=== PATIENT | male | born 1955 | race African-American/Black ===

== ENCOUNTER 2024-01-30 07:30 | Observation (INO) ==
[2024-01-30] MEDS ORDERED: XYLOCAINE 2 % (PLAIN) ONE (09:06)
[2024-01-30] MEDS ORDERED: ULTANE GAS IN ONE (09:06)
[2024-01-30] MEDS: NOZIN NASAL SANITIZER TP ONE (09:43)
[2024-01-30] MEDS: NS 1,000 ML IV 1,000 ML ONE ×2 (09:49→14:53)
[2024-01-30 10:43] VITALS: BMI 32.3
[2024-01-30] MEDS: SUPRANE ONE (13:29)
[2024-01-30] MEDS: NS 100 ML IV 100 ML ONE (13:42)
[2024-01-30] MEDS: ANCEF VIAL 1 GRAM ONE (13:42)
[2024-01-30] MEDS: DIPRIVAN VIAL 20 ML ONE (13:50)
[2024-01-30] MEDS: FENTANYL VIAL INJ 100 mcg ONE ×2 (13:50→15:13)
[2024-01-30] MEDS: ZEMURON 100 MG VIAL ONE (13:50)
[2024-01-30] MEDS: VERSED ONE (13:50)
[2024-01-30] MEDS: BRIDION ONE (13:50)
[2024-01-30] MEDS: PEPCID 20 MG VIAL ONE (13:50)
[2024-01-30] MEDS: ZOFRAN INJ 4 MG VIAL ONE (13:50)
[2024-01-30] MEDS: REGLAN INJ 10 MG VIAL ONE (13:50)
[2024-01-30] MEDS: TORADOL 30 MG VIAL ONE (13:50)
[2024-01-30] MEDS: MARCAINE 0.25% INJ ONE (14:12)
[2024-01-30] MEDS: OFIRMEV IV 1000 MG VIAL 1,000 MG/100 ML VIAL IV ONE (15:47)
[2024-01-30] MEDS ORDERED: ZOFRAN INJ 4 MG VIAL IVP PRN ×2 (16:21→16:36)
[2024-01-30] MEDS ORDERED: TYLENOL 325 MG TAB PO PRN (16:21)
[2024-01-30] MEDS ORDERED: DILAUDID INJ IVP PRN (16:21)
[2024-01-30] MEDS: DILAUDID INJ IVP PRN (16:26)
[2024-01-30] MEDS ORDERED: REGLAN INJ 10 MG VIAL IVP PRN (16:36)
[2024-01-30] MEDS ORDERED: BARHEMSYS INJ IVP PRN (16:36)
[2024-01-30] MEDS ORDERED: BENADRYL INJ 50 MG VIAL IVP PRN (16:36)
[2024-01-30] MEDS: NORMODYNE INJ 20 MG VIAL ONE (16:37)
[2024-01-30] MEDS: NS 1,000 ML IV 1,000 ML IV SCH (18:05)
[2024-01-30] MEDS: PERCOCET TAB 5/325 MG PO PRN (19:26)
[2024-01-30] MEDS: COLACE CAP 100 MG PO SCH (23:14)
[2024-01-31 05:18] LABS: CALCIUM 7.8 mg/dL (8.5-10.1); CARBON DIOXIDE 32.3 mmol/L (21-32); CREATININE 1.63 mg/dL (0.70-1.30); POTASSIUM 3.9 mmol/L (3.5-5.1)
[2024-01-31 07:30] VITALS: BP 141/64; PULSE 91; TEMP 97.8; O2SAT 99
[2024-01-31] MEDS: LOVENOX INJ 40 MG SYR SC SCH (08:04)
[2024-01-31 10:13] VITALS: RESP 20
--- NOTE | 2024-01-31 10:39 | NOTE.SOAP ---
Soap Note Note for Day of Date of Exam: 01/31/24 Subjective Data Subjective Data: Patient in bed. Denies any nausea, vomiting, fevers, chills, shortness of breath or chest pain. Objective Data Objective Data: Left Lower Extremity Exam: Dressing was noted to have strikethrough and was reinforced. I did take the dressing now. The surgical sites appeared well coapted. No hematoma formation was noted. No calf or thigh pain was noted. Redressed with 4x4s, Webroll, ABD, Splint. No signs or symptoms concerning for DVT or PE. Assessment Assessment: 68 year old M POD#1 ankle and subtalar joint fusion, left foot Plan Plan: - NWB to LLE - Scripts dispensed with patient. - He is aware he needs to get these filled. - Leave dressing clean, dry, and intact. - Okay for discharge.
== END 2024-01-31 10:50 | disposition home or self-care (01) ==
LOC: MED/SURG
PROVIDERS: ADMIT Obstetrics & Gynecology Obstetrics; ATTEND Obstetrics & Gynecology Obstetrics
DX: M14.672 Charcot's joint, left ankle and foot; Z98.890 Other specified postprocedural states; M19.072 Primary osteoarthritis, left ankle and foot; M86.672 Other chronic osteomyelitis, left ankle and foot; G89.18 Other acute postprocedural pain